=== PATIENT | female | born 1980 | race Two or more races ===

== ENCOUNTER 2018-04-13 08:18 | Emergency (ER) | payer OTHER ==
[~2018-04-13] VITALS: Ht 162.6 cm; Wt 68.5 kg
--- NOTE | 2018-04-13 08:23 | NUR ---
BIB RA 38 YEAR OLD FEMALE, FOUND ON SIDEWALK BY NEIGHBOR CALLED 911. BLOOD SUGAR WAS 63 IN THE FIELD. PATIENT COMPLAINS OF ABD PAIN AT THIS TIME. BREATHING EVEN AND UNALBORED WITH NO DISTRESS. NO N/V OR TRAUMA NOTED. SKIN WNL. AWAITING FOR MD ORDERS
--- NOTE | 2018-04-13 08:50 | NUR ---
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
[2018-04-13 09:02] LABS: BASOPHILS # (AUTO) 0.1 /CMM (0.0-0.2); BASOPHILS % (AUTO) 0.9 % (0.0-2.0); EOSINOPHILS % (AUTO) 1.1 % (0.0-6.0); HEMATOCRIT 36 % (33-45); HEMOGLOBIN 11.9 g/dL (11.5-14.8); LYMPHOCYTES % (AUTO) 21.5 % (20.0-44.0); MEAN CORPUSCULAR HEMOGLOBIN 29 PG (26.0-33.0); MEAN CORPUSCULAR HGB CONC 33 g/dl (31.0-36.0); MEAN CORPUSCULAR VOLUME 89 fL (82-100); MONOCYTES # (AUTO) 0.7 /CMM (0.1-1.30); MONOCYTES % (AUTO) 7.4 % (2.0-12.0); NEUTROPHILS # (AUTO) 6.4 /CMM (1.8-8.9); NEUTROPHILS % (AUTO) 69.1 % (43.0-81.0); PLATELET COUNT (AUTO) 352 /CMM (150-450); RDW COEFFICIENT OF VARIATION 13.2 (11.5-15.0); RED BLOOD CELL COUNT(AUTO) 4.09 MIL/uL (4.0-5.2); WHITE BLOOD COUNT (AUTO) 9.3 K/uL (4.3-11.0)
[2018-04-13 09:11] LABS: CALCIUM, SERUM 8.2 mg/dL (8.5-10.1); CARBON DIOXIDE 28 mmol/L (21-32); CHLORIDE 105 mmol/L (98-107); CREATININE 0.7 mg/dL (0.6-1.3); GLUCOSE 78 mg/dL (74-106); POTASSIUM 3.6 mmol/L (3.5-5.1); SODIUM SERUM 141 mmol/L (136-145); UREA NITROGEN, BLOOD 14 mg/dL (7-18)
[2018-04-13 09:17] LABS: ALANINE AMINOTRANSFERASE 20 U/L (12-78); ALBUMIN 3.3 g/dL (3.4-5.0); ALCOHOL, BLOOD < 3 mg/dL (0-0); ALKALINE PHOSPHATASE 77 U/L (46-116); ASPARTATE AMINOTRANSFERASE 18 U/L (15-37); BILIRUBIN,DIRECT 0.1 mg/dL (0.0-0.2); BILIRUBIN,TOTAL 0.6 mg/dL (0.2-1.0); TOTAL PROTEIN, SERUM 6.5 g/dL (6.4-8.2)
[2018-04-13 09:19] LABS: ACETAMINOPHEN 0 ug/ml (10-30)
--- NOTE | 2018-04-13 10:05 | NUR ---
Patient is resting comfortably in bed with eyes closed. Easily aroused. VSS
--- NOTE | 2018-04-13 11:40 | NUR ---
Patient is resting comfortably in bed with eyes closed. Easily aroused. VSS
[2018-04-13 14:28] LABS: APPEARANCE,URINE Slightly Cloudy (CLEAR); BILIRUBIN,URINE SMALL (NEGATIVE); BLOOD, URINE Small Ery/uL (NEGATIVE); COLOR,URINE Yellow (YELLOW); KETONES,URINE 40 (NEGATIVE); LEUKOCYTE ESTERASE ,URINE Trace (NEGATIVE); NITRITE, URINE Positive (NEGATIVE); PROTEIN,URINE Trace mg/dl (NEGATIVE); UGLUCOSE Negative (NEGATIVE)
[2018-04-13 14:33] LABS: BACTERIA,URINE Many /HPF (None Seen); SQUAMOUS EPITHELIAL CELL,UR Few /HPF (None Seen)
--- NOTE | 2018-04-13 14:46 | NUR ---
CALLED PT RELATIVE(CHILD) PER PATIENT REQUEST [phone]
[2018-04-13] MEDS ORDERED: CEFTRIAXONE 1 G VIAL IM ONE (15:00)
[2018-04-13] MEDS ORDERED: CEFTRIAXONE 1 G VIAL ONE (15:04)
[2018-04-13] MEDS ORDERED: LIDOCAINE /MPF 1% VIAL 5 ML VIAL ONE (15:04)
--- NOTE | 2018-04-13 16:30 | NUR ---
Patient is resting comfortably in bed with eyes closed. Easily aroused. VSS
[2018-04-13 19:05] VITALS: BP 105/67
--- NOTE | 2018-04-13 19:05 | NUR ---
Patient discharged to home in stable condition. Written and verbal after care instructions given. Patient verbalizes understanding of instruction. Patient ambulates the hallway with steady gait. AAOx3.
== END 2018-04-13 19:06 | disposition home or self-care (01) ==
LOC: ER 08:19
DX: G93.40 Encephalopathy, unspecified (principal); F15.10 Other stimulant abuse, uncomplicated; F11.10 Opioid abuse, uncomplicated
CPT/HCPCS: 36415; 51701; 80048; 80076; 80305; 80329; 81001; 84703; 85025; 87077; 87086; 87186; 96372; 99284; A4606; G0480 ×2; J0696; J3490; Z7610; 81000-TC